=== PATIENT | female | born 1940 | race Two or more races ===

== ENCOUNTER 2019-11-18 09:43 | Inpatient (IN) | payer OTHER ==
[~2019-11-18] VITALS: Ht 154.9 cm; Wt 86.2 kg
[2019-11-18] MEDS ORDERED: PROAIR HFA8.5 GM (10:03)
[2019-11-18] MEDS ORDERED: UCERIS9 MG (10:03)
[2019-11-18] MEDS ORDERED: FENOFIBRATE150 MG PO (10:04)
[2019-11-18] MEDS ORDERED: SYNTHROID100 MCG PO (10:04)
[2019-11-18] MEDS ORDERED: MORGIDOX100 MG (10:04)
[2019-11-18] MEDS ORDERED: ALENDRONATE SOD70 MG (10:04)
[2019-11-18] MEDS ORDERED: CITALOPRAM20 MG/10 M (10:04)
[2019-11-18] MEDS ORDERED: XELPROS2.5 ML (10:05)
[2019-11-18] MEDS ORDERED: ADALAT CC60 MG PO (10:05)
[2019-11-18] MEDS ORDERED: ALTOPREV40 MG (10:05)
[2019-11-18] MEDS ORDERED: RESTORIL30 M1 PO (10:06)
--- NOTE | 2019-11-18 10:11 | NUR ---
SE RECIBE PTE AMBULANDO ALERTA Y ORIENTADA X3 QUIEN REFIERE SOB Y TOS HACE MAS DE UN MES. PTE INDICA QUE TUVO EPISODIO DE BRONQUITIS HACE UN MES Y ESTUVO HOSPITALIZADA EN EL [facility] RECIBIENDO TRATAMIENTO MEDICO. PTE REFIERE QUE [place] RECIBIDO TERAPIA RESPIRATORIA Y NO [facility]. PTE SATURANDO AL 93%. SE NOTIFICA SATURACION A DR. MARIAM STRONG Y SE UBICA A PTE EN UNIDAD DE ASMA PARA SER EVALUADA POR MEDICO.
--- NOTE | 2019-11-18 10:39 | NUR ---
PACIENTE ALERTA Y ORIENTADA EN [place] [facility]I[place] ESFERAS. MS. BUTT ORIENTA A PACIENTE SOBRE PROCEDIMIENTO Y TX, REFIERE ENTENDER. EXTRAE MUESTRAS DE LABORATORIO CON MEDIDAS ASEPTICAS Y ADMINISTRA MEDICAMENTOS ZAFAR ORDEN MEDICA. SE NOTIFIA A MR. TREJO BRENNAN.
--- NOTE | 2019-11-18 14:49 | NUR ---
TERAPIAS RESPIRATORIAS NOTIFICADAS A MAYA.
[2019-11-29] MEDS ORDERED: LEVOFLOXACIN750 MG PO (15:26)
== END 2019-11-29 16:16 | disposition home or self-care (01) | DRG 202 ==
LOC: ER 09:43 → MEDJ 16:07 → MEDI 11-25 17:47
PROVIDERS: ADMIT Internal Medicine
PROC: BB24ZZZ Computerized Tomography (CT Scan) of Bilateral Lungs (ICD-10-PCS; principal; 2019-11-18)
PROC: 4A033R1 Measurement of Arterial Saturation, Peripheral, Percutaneous Approach (ICD-10-PCS; 2019-11-18)
PROC: 3E0F7GC Introduction of Other Therapeutic Substance into Respiratory Tract, Via Natural or Artificial Opening (ICD-10-PCS; 2019-11-18)
PROC: CB121ZZ Planar Nuclear Medicine Imaging of Lungs and Bronchi using Technetium 99m (Tc-99m) (ICD-10-PCS; 2019-11-20)
PROC: B246ZZZ Ultrasonography of Right and Left Heart (ICD-10-PCS; 2019-11-20)
DX: J45.41 Moderate persistent asthma with (acute) exacerbation (principal); I50.41 Acute combined systolic (congestive) and diastolic (congestive) heart failure; J98.11 Atelectasis; J44.0 Chronic obstructive pulmonary disease with (acute) lower respiratory infection; J20.9 Acute bronchitis, unspecified; I11.0 Hypertensive heart disease with heart failure; I08.3 Combined rheumatic disorders of mitral, aortic and tricuspid valves; R09.02 Hypoxemia; E03.8 Other specified hypothyroidism; Z72.0 Tobacco use

== ENCOUNTER 2021-01-23 12:19 | Inpatient (IN) | payer OTHER ==
[~2021-01-23] VITALS: Ht 124.5 cm; Wt 82.6 kg
[~2021-01-23 12:19] MED LIST: ADALAT CC60 MG PO; ALENDRONATE SOD70 MG; ALTOPREV40 MG; CITALOPRAM20 MG/10 M; FENOFIBRATE150 MG PO; LEVOFLOXACIN750 MG PO; MORGIDOX100 MG; PROAIR HFA8.5 GM; RESTORIL30 M1 PO; SYNTHROID100 MCG PO; UCERIS9 MG; XELPROS2.5 ML
--- NOTE | 2021-01-23 12:44 | NUR ---
PTE REFIERE QUE TIENE DIFICULTADA AL RESPIRAR Y TOS MIC Y CONTINUA PTE PRESENTA REFERIDO MEDICO, POR EL DR BROCK SE UBICA PTE EN OBSERVACION
--- NOTE | 2021-01-23 14:11 | NUR ---
PACIENTE FEMINA ALERTA ORIENTADA SE RE ORIENTA SOBRE EL TRATAMIENTO ORDENADO POR EL MEDICO LA MISMA REFIERE ENTENDER. BAJO MEDIDAS ASEPTICAS SE CANALIZA SE TOMANMUESTRAS DE LABORATORIO Y SE ADMINISTRAN MEDICAMENTOS. ORDENES TOMADAS Y EJECUTADAS POR RN: NENO. SE EMILY PRIVACIDAD SEGURIDAD Y SE ASISTE A TISHA NECESIDADES EN TODO MOMENTO. PACIENTE ESTABLE.
--- NOTE | 2021-01-23 15:03 | NUR ---
SE RECIBE PACIENTE FEMENINA ALERTA Y ORIENTADA EN [place] E[facility]ER[facility]. SE OBSERVA PACIENTE CONECTADA AL MONITOR CARDIACO Y OXIMETRIA DE PULSO, CANALIZACION EN AREA ANTECUBITAL RT PATENTE, LIMPIA SECA Y CANULA NASAL A 3L. SE MIDEN SIGNOS VITALES Y SE MANTIENE PACIENTE EN OBSERVACION. PACIENTE PENDIENTE A REVALUACION MEDICA.
[2021-01-24] MEDS ORDERED: COUGH DM E30 MG/5 ML (09:45)
[2021-01-24] MEDS ORDERED: ANORO ELLIPTA1 EACH (09:45)
[2021-01-24] MEDS ORDERED: LEVOTHYROXINE125 MCG (09:45)
[2021-01-24] MEDS ORDERED: GAS RELIEF125 MG (09:45)
== END 2021-01-30 12:02 | disposition home or self-care (01) | DRG 191 ==
LOC: ER 12:19 → MEDI 21:55
PROVIDERS: ADMIT Internal Medicine; ATTEND Internal Medicine
PROC: 3E0F7SF Introduction of Other Gas into Respiratory Tract, Via Natural or Artificial Opening (ICD-10-PCS; principal; 2021-01-23)
PROC: 3E0F73Z Introduction of Anti-inflammatory into Respiratory Tract, Via Natural or Artificial Opening (ICD-10-PCS; 2021-01-23)
DX: J44.0 Chronic obstructive pulmonary disease with (acute) lower respiratory infection (principal); J45.901 Unspecified asthma with (acute) exacerbation; J44.1 Chronic obstructive pulmonary disease with (acute) exacerbation; J20.9 Acute bronchitis, unspecified; I10 Essential (primary) hypertension; E03.9 Hypothyroidism, unspecified; E78.5 Hyperlipidemia, unspecified; F17.200 Nicotine dependence, unspecified, uncomplicated; Z20.822 Contact with and (suspected) exposure to COVID-19

== ENCOUNTER 2021-10-25 10:34 | Emergency (ER) | payer OTHER ==
[~2021-10-25] VITALS: Ht 124.5 cm; Wt 82.1 kg
[~2021-10-25 10:34] MED LIST changes: +ANORO ELLIPTA1 EACH; +COUGH DM E30 MG/5 ML; +GAS RELIEF125 MG; +LEVOTHYROXINE125 MCG
[2021-10-25] MEDS ORDERED: PEPCID AC20 MG PO (15:54)
[2021-10-25] MEDS ORDERED: CARAFATE1 GM PO (15:54)
== END 2021-10-25 15:56 | disposition home or self-care (01) ==
LOC: ER 10:34
DX: S22.42XA Multiple fractures of ribs, left side, initial encounter for closed fracture (principal); R10.84 Generalized abdominal pain; X58.XXXA Exposure to other specified factors, initial encounter; Y93.89 Activity, other specified; Y92.89 Other specified places as the place of occurrence of the external cause; Y99.8 Other external cause status

== ENCOUNTER 2023-04-17 10:49 | Inpatient (IN) | payer OTHER ==
[~2023-04-17] VITALS: Ht 154.9 cm; Wt 81.6 kg
[~2023-04-17 10:49] MED LIST changes: +CARAFATE1 GM PO; +PEPCID AC20 MG PO
[2023-04-29] MEDS ORDERED: MEDROLPACK PO (15:35)
[2023-04-29] MEDS ORDERED: BUDESONIDE0.5 MG/2 M IH (15:36)
[2023-04-29] MEDS ORDERED: LEVALBUTER0.63 MG/3 IH (15:37)
== END 2023-04-29 16:38 | disposition home or self-care (01) | DRG 190 ==
LOC: ER 10:49 → ICU-2 20:10 → MEDI 20:10
PROVIDERS: ADMIT Internal Medicine; ATTEND Internal Medicine
PROC: 4A12X4Z Monitoring of Cardiac Electrical Activity, External Approach (ICD-10-PCS; principal; 2023-04-19)
PROC: BW24ZZZ Computerized Tomography (CT Scan) of Chest and Abdomen (ICD-10-PCS; 2023-04-19)
DX: J44.1 Chronic obstructive pulmonary disease with (acute) exacerbation (principal); J18.9 Pneumonia, unspecified organism; L29.2 Pruritus vulvae; I10 Essential (primary) hypertension; E03.9 Hypothyroidism, unspecified; F17.200 Nicotine dependence, unspecified, uncomplicated; R41.82 Altered mental status, unspecified; Z20.822 Contact with and (suspected) exposure to COVID-19

== ENCOUNTER 2023-12-23 11:35 | Emergency (ER) | payer OTHER ==
[~2023-12-23] VITALS: Ht 157.5 cm; Wt 77.1 kg
[~2023-12-23 11:35] MED LIST changes: +BUDESONIDE0.5 MG/2 M IH; +LEVALBUTER0.63 MG/3 IH; +MEDROLPACK PO
[2023-12-23] MEDS ORDERED: FAMOTIDINE/PF 20 MG in 0.9 % SODIUM CHLORIDE 8 ML IV PUSH STA (12:59)
[2023-12-23] MEDS ORDERED: ONDANSETRON HCL 2 MG/ML VIAL IV ONE (13:00)
[2023-12-23] MEDS ORDERED: KETOROLAC TROMETHAMINE 30 MG VIAL IV ONE (13:00)
[2023-12-23 13:32] LABS: HEMOGLOBIN 15.8 g/dL (12.0-15.00); MEAN CORPUSCULAR HGB CONC 34.4 g/dl (32.0-36.0); PLATELET COUNT 193 K/uL (150-450); RED BLOOD COUNT 4.94 M/uL (4.00-6.00); RED CELL DISTRIBUTION WIDTH 13.3 % (11.5-14.5)
[2023-12-23 13:33] LABS: URINE APPEARANCE Turbid; URINE BILIRRUBIN Negative (NEGATIVE); URINE BLOOD NHT; URINE COLOR Yellow; URINE GLUCOSE Negative (NEGATIVE); URINE LEUKOCYTE Large; URINE NITRATE Negative; URINE PROTEIN Trace (NEGATIVE)
[2023-12-23 13:34] LABS: URINE EPITHELIAL CELLS 33.5 uL (0.0-38.8); URINE RBC 10.2 uL (0.0-20.8); URINE WBC 3740.9 uL (0.0-23.2)
[2023-12-23 13:46] LABS: ALBUMIN 3.8 gm/dL (3.4-5.0); BILIRUBIN TOTAL 0.55 mg/dL (0.3-1.2); CREATININE SERUM 0.68 mg/dL (0.55-1.02); GFR 82.23; GLOBULINA 3.5 G/DL (2.4-3.5); POTASSIUM 4.22 mEq/L (3.5-5.1); TOTAL PROTEIN 7.3 gm/dL (6.4-8.2)
[2023-12-23 13:52] LABS: URINE BACTERIA > 9821.2 uL (0.0-1933)
[2023-12-23] MEDS ORDERED: BACTRIM DS TAB1 EACH PO (14:47)
[2023-12-23] MEDS ORDERED: PEPCID AC20 MG PO (14:47)
== END 2023-12-23 15:00 | disposition home or self-care (01) ==
LOC: ER 11:35
PROVIDERS: General Practice
DX: N39.0 Urinary tract infection, site not specified (principal); R05.9 Cough, unspecified; Z20.822 Contact with and (suspected) exposure to COVID-19; I10 Essential (primary) hypertension; Z88.0 Allergy status to penicillin
CPT/HCPCS: 36415; 96365; 99282; J1885; J2405; J3490

== ENCOUNTER 2024-07-28 10:21 | Emergency (ER) | payer OTHER ==
[~2024-07-28] VITALS: Ht 149.9 cm; Wt 62.1 kg
[~2024-07-28 10:21] MED LIST changes: +BACTRIM DS TAB1 EACH PO
[2024-07-28] MEDS ORDERED: CAMBIA50 MG (10:28)
[2024-07-28] MEDS ORDERED: TRAZODONE HCL150 MG (10:28)
[2024-07-28] MEDS ORDERED: GRALISE600 MG (10:28)
[2024-07-28] MEDS ORDERED: COZAAR50 MG (10:28)
[2024-07-28] MEDS ORDERED: PANTOPRAZOLE SO40 M2 (10:28)
[2024-07-28] MEDS ORDERED: SYNTHROID112 MCG (10:28)
[2024-07-28] MEDS ORDERED: DULOXETINE HCL40 MG (10:29)
[2024-07-28] MEDS ORDERED: ARICEPT10 MG (10:29)
[2024-07-28] MEDS ORDERED: CYCLOBENZAPRINE10 MG (10:30)
[2024-07-28] MEDS ORDERED: 0.9 % SODIUM CHLORIDE 1,000 ML IV ONE (10:45)
[2024-07-28] MEDS ORDERED: VITAMIN B COMPLEX/LYSINE 1 ML ML PO ONE (10:45)
[2024-07-28] MEDS ORDERED: FAMOtidine 10 MG/ML (4ML VIAL) IV ONE (10:45)
[2024-07-28 11:22] LABS: HEMATOCRIT 42.4 % (36.0-45.00); HEMOGLOBIN 14.6 g/dL (12.0-15.00); MEAN CELL VOLUME 93.8 fL (80.00-100.00); MEAN CORPUSCULAR HEMOGLOBIN 32.4 pg (27.00-32.0); MEAN CORPUSCULAR HGB CONC 34.6 g/dl (32.0-36.0); PLATELET COUNT 176 K/uL (150-450); RED BLOOD COUNT 4.52 M/uL (4.00-6.00); RED CELL DISTRIBUTION WIDTH 13.8 % (11.5-14.5)
[2024-07-28 11:45] LABS: ALBUMIN 3.5 gm/dL (3.4-5.0); BILIRUBIN TOTAL 0.49 mg/dL (0.3-1.2); BILIRUBIN,CONJUGATED 0.13 mg/dL (0.0-0.2); BILIRUBIN,UNCONJUGATED 0.36 mg/dL (0.0-0.6); CALCIUM 10.8 mg/dL (8.5-10.1); CREATININE SERUM 0.62 mg/dL (0.55-1.02); GFR 91.48; GLOBULINA 3.1 G/DL (2.4-3.5); POTASSIUM 4.13 mEq/L (3.5-5.1); TOTAL PROTEIN 6.6 gm/dL (6.4-8.2)
[2024-07-28] MEDS ORDERED: APETIGEN-PLUS1 EACH PO (14:31)
[2024-07-28] MEDS ORDERED: CIPRO250 MG PO (14:31)
[2024-07-28] MEDS ORDERED: METRONIDAZOLE500 MG PO (14:31)
[2024-07-28] MEDS ORDERED: PEPCID AC20 MG PO (14:31)
[2024-07-28] MEDS ORDERED: FAMOtidine 20 MG TABLET PO ONE (14:45)
== END 2024-07-28 14:38 | disposition home or self-care (01) ==
LOC: ER 10:21
PROVIDERS: General Practice
DX: R63.0 Anorexia (principal); K57.90 Diverticulosis of intestine, part unspecified, without perforation or abscess without bleeding; I10 Essential (primary) hypertension; Z88.0 Allergy status to penicillin
CPT/HCPCS: 36415; 71045; 74177; 93005; 96365; 96366; 99284; J3490; J7030; Q9965

== ENCOUNTER 2024-10-10 03:37 | Emergency (ER) | payer OTHER ==
[~2024-10-10] VITALS: Ht 152.4 cm; Wt 59.0 kg
[~2024-10-10 03:37] MED LIST changes: +APETIGEN-PLUS1 EACH PO; +ARICEPT10 MG; +CAMBIA50 MG; +CIPRO250 MG PO; +COZAAR50 MG; +CYCLOBENZAPRINE10 MG; +DULOXETINE HCL40 MG; +GRALISE600 MG; +METRONIDAZOLE500 MG PO; +PANTOPRAZOLE SO40 M2; +SYNTHROID112 MCG; +TRAZODONE HCL150 MG
[2024-10-10 03:54] VITALS: BP 122/77; O2SAT 97
[2024-10-10] MEDS ORDERED: PROMETHAZINE HCL 50 MG/ML AMPUL IM STA (04:19)
[2024-10-10] MEDS ORDERED: 0.9 % SODIUM CHLORIDE 1,000 ML IV STA (04:20)
[2024-10-10] MEDS ORDERED: FAMOtidine 10 MG/ML (4ML VIAL) IV PUSH STA (04:21)
[2024-10-10] MEDS ORDERED: ONDANSETRON HCL 2 MG/ML VIAL IV STA (04:21)
[2024-10-10] MEDS ORDERED: ONDANSETRON HCL 2 MG/ML VIAL ONE ×2 (04:25→04:26)
[2024-10-10] MEDS ORDERED: PROMETHAZINE HCL 50 MG/ML AMPUL IM ONE (04:26)
[2024-10-10] MEDS ORDERED: HYOSCYAMINE SULFATE 0.125 MG TAB.SUBL ONE (04:26)
[2024-10-10] MEDS ORDERED: FAMOTIDINE/PF 20 MG/2 ML VIAL ONE (04:26)
[2024-10-10] MEDS ORDERED: HYOSCYAMINE SULFATE 0.125 MG TAB.SUBL SL ONE (04:30)
== END 2024-10-10 08:25 | disposition home or self-care (01) ==
LOC: ER 03:37
DX: R53.81 Other malaise (principal); K29.70 Gastritis, unspecified, without bleeding; R11.10 Vomiting, unspecified; Z88.0 Allergy status to penicillin
CPT/HCPCS: 96365; 96366; 96372; 99282; J2405; J2550; J3490; J7030

== ENCOUNTER → 2025-03-01 | Emergency (ER) | payer OTHER ==
[~2025-03-01] VITALS: Ht 124.5 cm; Wt 60.3 kg
[~2025-03-01] MED LIST changes: +FAMOTIDINE/PF 20 MG in 0.9 % SODIUM CHLORIDE 8 ML IV PUSH STA; +FAMOTIDINE/PF 20 MG/2 ML VIAL ONE; +ONDANSETRON HCL 2 MG/ML VIAL IV STA; +SUCRALFATE 1 G TABLET PO ONE
[2025-03-01 10:51] LABS: BASO % 1.1 % (0.1-1.2); EOS # 0.03 (0.04-0.54); EOS % 0.5 % (0.7-7.0); HEMATOCRIT 44.2 % (34.1-44.9); LYMPH # 1.77 (1.18-3.74); LYMPH % 28.5 % (19.3-53.1); MEAN CORPUSCULAR HEMOGLOBIN 32.4 pg (25.6-32.2); MONO # 0.42 (0.24-0.82); MONO % 6.8 % (4.7-12.5); NEUT # 3.91 (1.56-6.13); NEUT % 62.8 % (34.0-71.1); PLATELET COUNT 192 K/uL (163-369); RED BLOOD COUNT 4.63 M/uL (3.93-5.22); RED CELL DISTRIBUTION WIDTH 13.2 % (11.6-14.4)
[2025-03-01 12:02] LABS: CALCIUM 10.8 mg/dL (8.5-10.1); CREATININE SERUM 0.73 mg/dL (0.55-1.02); GFR 75.59; POTASSIUM 3.78 mEq/L (3.5-5.1)
== END | disposition home or self-care (01) ==
LOC: ER 08:31
PROVIDERS: Emergency Medicine
DX: K29.70 Gastritis, unspecified, without bleeding (principal); R10.9 Unspecified abdominal pain; I10 Essential (primary) hypertension; E03.8 Other specified hypothyroidism; Z88.0 Allergy status to penicillin
CPT/HCPCS: 36415; 96365; 99282; J2405; J3490